=== PATIENT | male | born 1940 | race Caucasian/White ===

== ENCOUNTER 2022-03-03 08:29 | Emergency (ER) | payer MEDICARE, SELFPAY ==
--- NOTE | 2022-03-03 08:37 | ED.SOB ---
HPI - SOB/Dyspnea General Chief Complaint: Shortness of Breath/Dyspnea Stated Complaint: Tight chest /sob to walk Time Seen by Provider: 03/03/22 08:37 Source: patient, RN notes reviewed and old records reviewed Mode of arrival: ambulatory Limitations: no limitations History of Present Illness HPI Narrative: 82-year-old male presents to the [facility] with complaints of chest tightness and shortness of breath for several days. Becomes tachycardic on exertion and extremely short of breath. patient states that his heart was racing all night last night was unable to get any sleep. 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 Related Data Home Medications Medication Instructions Recorded Confirmed azelaic acid 15 % topical gel topical 03/03/22 ferrous sulfate 325 mg (65 mg mg 03/03/22 iron) tablet (FeroSul) ipratropium bromide 21 mcg (0.03 intranasal 03/03/22 %) nasal spray sertraline 25 mg tablet mg 03/03/22 Allergies Allergy/AdvReac Type Severity Reaction Status Date / Time No Known Allergies Allergy Unverified 03/03/22 08:48 Review of Systems Review of Systems: All systems reviewed & are unremarkable except as noted in HPI and below Constitutional: Constitutional: Reports no additional constitutional complaints Eyes: Eyes: Reports no additional eye complaints ENT: Reports system reviewed and no additional complaints, except as documented Cardiovascular: Cardiovascular: Reports as per HPI, Denies chest pain, Reports rapid heart rate and Denies dyspnea Respiratory: Respiratory: Reports as per HPI, Denies chest congestion, Denies cough and Reports dyspnea Gastrointestinal: Gastrointestinal: Reports no additional gastrointestinal complaints, Denies abdominal pain, Denies nausea and Denies vomiting Musculoskeletal: Musculoskeletal: Reports no additional musculoskeletal complaints Integumentary/Breasts: Skin/Breast: Reports system reviewed and no additional complaints, except as docu Neurologic: Reports system reviewed and no additional complaints, except as documented Psychiatric: Psychiatric: Reports no additional psychiatric complaints Allergic/Immunologic: Allergic/Immunologic: Reports no additional allergic/immunologic complaints [facility] Past Medical History Medical History (Updated 03/03/22 @ 09:09 by Nia Osorio APRN) Anemia Anxiety and depression Pulmonary embolism Comments At the time of my signature, I reviewed and agree with the nursing past medical, surgical, social, and family history. There is no relevant family history pertinent to the patient complaint. Exam Const: General: cooperative, no acute distress, well developed, alert, ill appearing chronically, uncomfortable and well nourished Nutritional Appearance: well nourished Orientation/consciousness: patient oriented x3 Limitations: no limitations HENMT: Head: normal to inspection Ears: hearing grossly normal bilaterally and external ears normal Face/Nose/Sinus: Normal external nose present, Normal nares present, Normal nasal mucous membranes and turbinates present and normal facial exam Face and sinus: normal facial exam Mouth: Yes Normal oral and palatal mucosa present, Yes lip normal and Yes moist mucous membranes Throat: posterior oropharynx normal and uvula midline Eyes: General: appearance normal, both eyes and all related structures Alignment and Position: alignment normal Periorbital: periorbital findings normal Conjunctivae: conjunctivae normal Pupils: Equal, round and reactive pupils present EOM: EOMs intact bilaterally Neck: Neck: normal visual inspection, full ROM, no lymphadenopathy and no meningeal signs Chest: Chest palpation & inspection: normal inspection of the chest Resp: Effort & Inspection: able to speak in complete sentences, no retractions, tachypneic ( on exertion, normal respirations when lying for several minutes stretcher) and no use of acc
[2022-03-03 08:49] VITALS: BP 167/93; PULSE 81; RESP 24; TEMP 36.6; O2SAT 94
[2022-03-03 09:03] VITALS: PULSE 82; RESP 20; O2SAT 98
--- NOTE | 2022-03-03 09:07 | ECG_ITS ---
Measurements Intervals [place] Rate: 79 P: 80 IA: 167 QRS: -87 QRSD: 128 T: 237 QT: 419 QTc: 481 Interpretive Statements SINUS RHYTHM RIGHT BUNDLE BRANCH BLOCK [120+ ms QRS DURATION, UPRIGHT V1, 40+ ms S IN I/aVL/V4/V5/V6] PREVIOUS INFERIOR WALL PA NO PREVIOUS ECG AVAILABLE FOR COMPARISON Electronically Signed On 03-03-2022 19:57:58 [employer] by Johnny Quintanilla M.D.
== END 2022-03-03 09:03 | disposition short-term general hospital (02) ==
PROVIDERS: Emergency Provider Nurse Practitioner; PCP Family Medicine
DX: R06.02 Shortness of breath (principal); D64.9 Anemia, unspecified; F41.9 Anxiety disorder, unspecified; F32.A Depression, unspecified; Z86.711 Personal history of pulmonary embolism
CPT/HCPCS: 93005; 99203; G0463